=== PATIENT | female | born 1990 | race Caucasian/White ===

== ENCOUNTER 2018-02-07 11:40 | Emergency (ER) | payer SELFPAY ==
[~2018-02-07] VITALS: Ht 154.9 cm; Wt 44.5 kg
[2018-02-07 12:13] VITALS: BP 111/73
[2018-02-07] MEDS ORDERED: KETOROLAC 60 MG/2 ML INJ. IM ONE (13:15)
[2018-02-07] MEDS ORDERED: ORPHENADRINE CITRATE 60 MG/2 ML VIAL. IM ONE (13:15)
[2018-02-07] MEDS ORDERED: NAPR-514 PO (13:45)
[2018-02-07] MEDS ORDERED: ORPH100T PO (13:45)
--- NOTE | 2018-02-07 13:46 | PHYS DOC ---
Past Medical History Past Medical History: Anxiety, Depression Past Surgical History: No Surgical History Alcohol Use: None Drug Use: None Adult General Chief Complaint Chief Complaint: LOWER BACK PAIN OR INJURY HPI HPI Patient is a 27 year old female who presents to the emergency Department today with complaints of right low back pain that radiates into her right leg and buttock. States that the pain began 3 days ago an hour after she had been doing the leg press at the gym. She denies any known injury, or feeling anything pop. She denies any saddle anesthesia, loss of bowel or bladder control, or weakness of the affected extremity. Currently she rates her pain as a 7 of 10 on the pain scale. She states her last menstrual cycle was approximately one month ago and she uses the nexplanon for control. Patient states that the pain is exacerbated by movement. She reports her only medical history is anxiety and depression which she takes Wellbutrin for, she has no surgical history, and is not allergic to any medications. Review of Systems Review of Systems Constitutional: Denies fever or chills [] Musculoskeletal: Denies joint pain, reports R low back pain into R buttock and R leg that is worse with movement Integument: Denies rash or skin lesions [] Neurologic: Denies headache, focal weakness or sensory changes [] Current Medications Current Medications Current Medications Medications (Trade) Dose Ordered Sig/[facility] Start Time Stop Time Status Last Admin Dose Admin Ketorolac Tromethamine (Toradol Im) 30 mg 1X ONCE 02/07/18 13:15 02/07/18 13:16 DC 02/07/18 13:17 30 MG Orphenadrine Citrate (Norflex) 60 mg 1X ONCE 02/07/18 13:15 02/07/18 13:16 DC 02/07/18 13:15 60 MG Allergies Allergies Allergies Coded Allergies Type Severity Reaction Last Updated Verified No Known Drug Allergies 02/07/18 No Physical Exam Physical Exam Constitutional: Well developed, well nourished, no acute distress, non-toxic appearance. [] HENT: Normocephalic, atraumatic, bilateral external ears normal, nose normal. [ ] Eyes: PERRLA, conjunctiva normal, no discharge. [] Skin: Warm, dry, no erythema, no rash. [] Back: No tenderness, no CVA tenderness, no saddle anesthesia. [] Extremities: No tenderness, no cyanosis, ROM intact, no edema. [] Neurologic: Alert and oriented X 3, normal motor function, normal sensory function, no focal deficits noted. [] Psychologic: Affect normal, judgement normal, mood normal. [] Current Patient Data Vital Signs Vital Signs Date Time Temp Pulse Resp B/P (MAP) Pulse Ox O2 Delivery O2 Flow Rate FiO2 02/07/18 12:13 98.4 71 16 111/73 (86) 98 Room Air 98.4 EKG EKG [] Radiology/Procedures Radiology/Procedures [] Course & Med Decision Making Course & Med Decision Making Pertinent Labs and Imaging studies reviewed. (See chart for details) Patient is a 27-year-old female who reported right low back pain that radiated into her right leg and buttock for the last 3 days. Her vital signs are stable, physical exam and pt history are consistent with R low back pain with sciatica, treated as such. Pt was given IM injections of 30 mg toradol and 60 mg of norflex in the department. Reports reduced pain after these medications. PT ambulated with a steady gait. Prescriptions for norflex and naproxen written. Patient verbalized an understanding of home care, medications, follow-up, and return to ED instructions and was in agreement with the plan of care. [] Dragon Disclaimer Dragon Disclaimer This electronic medical record was generated, in whole or in part, using a voice recognition dictation system. Departure Departure Impression: Primary Impression: Low back strain Additional Impression: Right-sided low back pain with right-sided sciatica Disposition: 01 HOME, SELF-CARE Condition: STABLE Referrals: UNKNOWN PCP NAME (PCP) Patient Instructions: Back Pain, Adult, [id number], Sciatica, [id number] Additional Instructions: Fill the prescriptions and use them as directed, recommended application of ice or heat to sore areas for additional comfort. Activity as tolerated. Follow-up with your primary care doctor in 1-2 days. Return to the emergency room if her symptoms worsen. Scripts Orphenadrine Citrate (ORPHENADRINE CITRATE) 100 Mg Tablet.er 100 MG PO BID PRN for PAIN for 10 Days, #20 TAB.SR 0 Refills Prov: CLAUDIA ARRIAGA TE[employer]VISION PRESENTER 02/07/18 Naproxen (NAPROXEN) 500 Mg Tablet 500 MG PO BID for 10 Days, #20 TAB 0 Refills Prov: CLAUDIA ARRIAGA TELEVISION PRESENTER 02/07/18 Problem Qualifiers Primary Impression: Low back strain Encounter type: initial encounter Qualified Codes: S39.012A - Strain of muscle, fascia and tendon of lower back, initial encounter Additional Impression: Right-sided low back pain with right-sided sciatica Chronicity: acute Qualified Codes: M54.41 - Lumbago with sciatica, right side CLAUDIA ARRIAGA TELEVISION PRESENTER Feb 07, 2018 13:46
== END 2018-02-07 13:52 | disposition home or self-care (01) ==
LOC: ER 11:40
DX: S39.012A Strain of muscle, fascia and tendon of lower back, initial encounter (principal); F41.9 Anxiety disorder, unspecified; F32.9 Major depressive disorder, single episode, unspecified; X58.XXXA Exposure to other specified factors, initial encounter; Y93.89 Activity, other specified; Y92.89 Other specified places as the place of occurrence of the external cause; Y99.8 Other external cause status
CPT/HCPCS: 96372; 99284; J1885; J2360